=== PATIENT | female | born 1935 | race Caucasian/White ===

== ENCOUNTER 2017-11-23 09:11 | Inpatient (IN) | payer OTHER, MEDICARE ==
[~2017-11-23] VITALS: Ht 142.2 cm; Wt 80.8 kg
[2017-11-23] VITALS (8 sets, daily range): BP systolic 136–170; BP diastolic 80–127
[~2017-11-23 09:11] MED LIST: CALCIUM + D TA1 EACH PO; FLEXERIL10 MG PO; LASIX20 MG PO; LIDODERM 5% P1 PATCH TD; LOPRESSOR100 M1 PO; LORCET 5-325 M1 EACH PO; METOPROLOL SUC100 MG PO; MOTRIN600 MG PO; NAPROXEN500 MG PO; NORCO 5/3251 TABLET PO; POTASSIUM CHLO20 ME2 PO; PRADAXA150 MG PO; PROCARDIA XL60 MG PO; SUPER CALCIUM600 MG PO; ULTRAM50 MG PO; VALIUM2 MG PO; VERAPAMIL ER300 MG PO; VERAPAMIL HCL240 MG PO; XANAX0.25 MG PO; XARELTO10 MG PO
[2017-11-23 10:37] LABS: HEMATOCRIT 44.6 % (36.0-46.0); HEMOGLOBIN 14.5 G/DL (11.9-15.5); MCH 30.9 PG (29.0-34.0); MCHC 32.5 G/DL (30.0-36.0); MCV 94.9 FL (83-99); PLATELET COUNT 226 K/uL (156-360); RBC DIS.WIDTH-CV 14.4 % (11.8-14.6); RBC DIS.WIDTH-SD 50.3 % (39-53); WHITE BLOOD COUNT 8.4 K/uL (4.1-10.2)
[2017-11-23 10:47] LABS: INTER. NORMALIZED RATIO 3.2
[2017-11-23 10:50] LABS: PTT 34.1 SEC (25-37)
[2017-11-23 10:51] LABS: CHLORIDE 105 mEq/L (99-109); SODIUM 142 mEq/L (136-147)
[2017-11-23 10:52] LABS: GLUCOSE 136 mg/dL (70-99)
[2017-11-23 10:56] LABS: CREATININE 1.4 mg/dL (0.6-1.3); GFR ESTIMATE (CALCULATED) 38 mL/min/
[2017-11-23] MEDS ORDERED: VITAMIN D2000 UNI1 PO (10:56)
[2017-11-23 10:57] LABS: UREA NITROGEN (BUN) 28 mg/dL (9-23)
[2017-11-23] MEDS ORDERED: VIBRAMYCIN100 MG PO (10:57)
[2017-11-23] MEDS ORDERED: COUMADIN2 MG PO (10:57)
[2017-11-23 11:26] LABS: CREATINE KINASE 50 IU/L (1-294)
[2017-11-23 21:00] LABS: INTER. NORMALIZED RATIO 2.8
[2017-11-24] VITALS (7 sets, daily range): BP systolic 129–158; BP diastolic 54–76
[2017-11-24 02:56] LABS: INTER. NORMALIZED RATIO 2.8
[2017-11-24 03:00] LABS: ALBUMIN 2.9 g/dL (3.2-4.8); CHLORIDE 107 mEq/L (99-109); POTASSIUM 4.3 mEq/L (3.7-5.4); SODIUM 142 mEq/L (136-147)
[2017-11-24 03:02] LABS: HEMATOCRIT 37.1 % (36.0-46.0); HEMOGLOBIN 12.4 G/DL (11.9-15.5); MCH 31.7 PG (29.0-34.0); MCHC 33.4 G/DL (30.0-36.0); MCV 94.9 FL (83-99); NRBC (%) 0.2 /100 WBC (0-0); PLATELET COUNT 178 K/uL (156-360); RBC DIS.WIDTH-CV 14.6 % (11.8-14.6); RBC DIS.WIDTH-SD 49.9 % (39-53); RED BLOOD COUNT 3.91 M/uL (3.80-5.20); WHITE BLOOD COUNT 10.2 K/uL (4.1-10.2)
[2017-11-24 03:03] LABS: TOTAL PROTEIN 5.4 g/dL (6.4-8.3)
[2017-11-24 03:04] LABS: TOTAL BILIRUBIN 2.4 mg/dL (0.0-1.0)
[2017-11-24 03:06] LABS: ALKALINE PHOSPHATASE 76 IU/L (3-129); GFR ESTIMATE (CALCULATED) 57 mL/min/
[2017-11-24 03:07] LABS: UREA NITROGEN (BUN) 25 mg/dL (9-23)
[2017-11-24 03:08] LABS: AST (GOT) 17 IU/L (2-34)
[2017-11-24 03:09] LABS: ALT (GPT) 15 IU/L (3-49)
[2017-11-24 03:13] LABS: GLUCOSE 99 mg/dL (70-99)
[2017-11-24 03:45] LABS: APPEARANCE SL.HAZY ((CLEAR)); BILIRUBIN NEGATIVE; BLOOD LARGE; COLOR YELLOW ((YELLOW)); GLUCOSE (STRIP) NEGATIVE; KETONES NEGATIVE; LEUKOCYTES NEGATIVE; NITRITE NEGATIVE; PROTEIN (STRIP) 100; SPECIFIC GRAVITY 1.025 (1.000-1.030); UROBILINOGEN 0.2 MG/DL (0.2-1.0)
[2017-11-24 04:44] LABS: BACTERIA RARE /HPF; EPITHELIAL CELLS RARE /HPF; HYALINE CASTS 0-5 /LPF; MUCUS TRACE /LPF; RED BLOOD CELLS TNTC /HPF (0-5); UCUL ADDED? YES
[2017-11-24 07:16] LABS: CHLORIDE 107 MEQ/L (99-109); CREATININE 1.1 MG/DL (0.6-1.3); GFR ESTIMATE (CALCULATED) 51 mL/min/; GLUCOSE 97 mg/dL (70-99); POTASSIUM 4.5 MEQ/L (3.7-5.4); SODIUM 141 MEQ/L (136-147); UREA NITROGEN (BUN) 24 mg/dL (9-23)
[2017-11-24 15:03] LABS: INTER. NORMALIZED RATIO 2.5
[2017-11-24 15:06] LABS: PTT 32.2 SEC (25-37)
[2017-11-25 04:16] VITALS: BP 138/76
[2017-11-25 08:04] VITALS: BP 133/77
[2017-11-25 09:55] LABS: INTER. NORMALIZED RATIO 1.3
[2017-11-25 11:48] VITALS: BP 146/73
[2017-11-25 16:30] VITALS: BP 157/72
[2017-11-25 20:30] VITALS: BP 166/80
[2017-11-25 23:44] VITALS: BP 144/66
[2017-11-26 04:06] VITALS: BP 147/65
[2017-11-26 06:08] LABS: BASOPHIL (%) 0.2 % (0-1); EOSINOPHIL (%) 0.5 % (0-5); EOSINOPHIL COUNT 0.1 K/uL (0-0.3); HEMATOCRIT 33.5 % (36.0-46.0); HEMOGLOBIN 10.9 G/DL (11.9-15.5); IMMATURE GRANULOCYTE (%) 0.6 % (0.0-0.7); LYMPHOCYTE (%) 9.2 % (15-42); LYMPHOCYTE COUNT 1.2 K/uL (1.0-2.8); MCH 31.3 PG (29.0-34.0); MCHC 32.5 G/DL (30.0-36.0); MCV 96.3 FL (83-99); MONOCYTE (%) 12.6 % (3-12); MONOCYTE COUNT 1.6 K/uL (0-0.8); NEUTROPHIL (%) 76.9 % (45-76); NEUTROPHIL COUNT 9.8 K/uL (1.8-6.4); NRBC (%) 0.8 /100 WBC (0-0); PLATELET COUNT 184 K/uL (156-360); RBC DIS.WIDTH-CV 15.1 % (11.8-14.6); RBC DIS.WIDTH-SD 51.6 % (39-53); RED BLOOD COUNT 3.48 M/uL (3.80-5.20); WHITE BLOOD COUNT 12.7 K/uL (4.1-10.2)
[2017-11-26 06:21] LABS: CHLORIDE 109 MEQ/L (99-109); GFR ESTIMATE (CALCULATED) 57 mL/min/; GLUCOSE 110 mg/dL (70-99); POTASSIUM 4.3 MEQ/L (3.7-5.4); SODIUM 140 MEQ/L (136-147); UREA NITROGEN (BUN) 26 mg/dL (9-23)
[2017-11-26 07:55] VITALS: BP 145/75
[2017-11-26 14:51] LABS: INTER. NORMALIZED RATIO 1.5
[2017-11-26 16:30] VITALS: BP 145/72
[2017-11-26 20:21] VITALS: BP 166/74
[2017-11-26 23:29] VITALS: BP 117/56
[2017-11-27 04:28] VITALS: BP 119/56
[2017-11-27 06:07] LABS: BASOPHIL (%) 0.1 % (0-1); EOSINOPHIL (%) 1.9 % (0-5); EOSINOPHIL COUNT 0.2 K/uL (0-0.3); HEMATOCRIT 31.6 % (36.0-46.0); HEMOGLOBIN 10.1 G/DL (11.9-15.5); IMMATURE GRANULOCYTE (%) 0.5 % (0.0-0.7); LYMPHOCYTE (%) 8.7 % (15-42); LYMPHOCYTE COUNT 0.9 K/uL (1.0-2.8); MCV 96.9 FL (83-99); MONOCYTE (%) 13.6 % (3-12); MONOCYTE COUNT 1.5 K/uL (0-0.8); NEUTROPHIL (%) 75.2 % (45-76); NEUTROPHIL COUNT 8.1 K/uL (1.8-6.4); NRBC (%) 1.2 /100 WBC (0-0); PLATELET COUNT 182 K/uL (156-360); RBC DIS.WIDTH-CV 15.3 % (11.8-14.6); RBC DIS.WIDTH-SD 51.8 % (39-53); RED BLOOD COUNT 3.26 M/uL (3.80-5.20); WHITE BLOOD COUNT 10.8 K/uL (4.1-10.2)
[2017-11-27 06:25] LABS: CHLORIDE 111 MEQ/L (99-109); CREATININE 0.8 MG/DL (0.6-1.3); GFR ESTIMATE (CALCULATED) > 59 mL/min/; GLUCOSE 101 mg/dL (70-99); POTASSIUM 4.2 MEQ/L (3.7-5.4); SODIUM 142 MEQ/L (136-147); UREA NITROGEN (BUN) 21 mg/dL (9-23)
[2017-11-27 06:38] LABS: INTER. NORMALIZED RATIO 2.8
[2017-11-27 07:58] VITALS: BP 138/69
[2017-11-27 11:49] VITALS: BP 154/74
[2017-11-27 14:51] LABS: INTER. NORMALIZED RATIO 3.7
[2017-11-27 16:15] VITALS: BP 157/68
[2017-11-27 20:00] VITALS: BP 139/73
[2017-11-27 23:57] VITALS: BP 143/75
[2017-11-28 04:00] VITALS: BP 155/80
[2017-11-28 05:52] LABS: BASOPHIL (%) 0.1 % (0-1); EOSINOPHIL (%) 1.8 % (0-5); EOSINOPHIL COUNT 0.2 K/uL (0-0.3); HEMATOCRIT 30.3 % (36.0-46.0); HEMOGLOBIN 9.6 G/DL (11.9-15.5); IMMATURE GRANULOCYTE (%) 0.5 % (0.0-0.7); LYMPHOCYTE (%) 10.3 % (15-42); LYMPHOCYTE COUNT 1.2 K/uL (1.0-2.8); MCHC 31.7 G/DL (30.0-36.0); MCV 97.7 FL (83-99); MONOCYTE (%) 13.9 % (3-12); MONOCYTE COUNT 1.7 K/uL (0-0.8); NEUTROPHIL (%) 73.4 % (45-76); NEUTROPHIL COUNT 8.7 K/uL (1.8-6.4); NRBC (%) 0.4 /100 WBC (0-0); PLATELET COUNT 171 K/uL (156-360); RBC DIS.WIDTH-SD 53.6 % (39-53); WHITE BLOOD COUNT 11.9 K/uL (4.1-10.2)
[2017-11-28 06:23] LABS: CHLORIDE 109 MEQ/L (99-109); CREATININE 0.8 MG/DL (0.6-1.3); GFR ESTIMATE (CALCULATED) > 59 mL/min/; GLUCOSE 95 mg/dL (70-99); POTASSIUM 4.6 MEQ/L (3.7-5.4); SODIUM 140 MEQ/L (136-147); UREA NITROGEN (BUN) 22 mg/dL (9-23)
[2017-11-28 07:23] VITALS: BP 191/80
[2017-11-28 08:25] LABS: INTER. NORMALIZED RATIO 3.5
[2017-11-28 11:45] VITALS: BP 145/75; BP 515/75
[2017-11-28 15:24] LABS: INTER. NORMALIZED RATIO 3.3
[2017-11-28 15:25] VITALS: BP 134/74
[2017-11-28 20:39] VITALS: BP 138/67
[2017-11-29] VITALS (7 sets, daily range): BP systolic 143–177; BP diastolic 69–84
[2017-11-29 06:04] LABS: BASOPHIL (%) 0.1 % (0-1); EOSINOPHIL (%) 1.4 % (0-5); EOSINOPHIL COUNT 0.2 K/uL (0-0.3); HEMATOCRIT 29.1 % (36.0-46.0); HEMOGLOBIN 9.4 G/DL (11.9-15.5); IMMATURE GRANULOCYTE (%) 0.7 % (0.0-0.7); LYMPHOCYTE (%) 10.6 % (15-42); LYMPHOCYTE COUNT 1.5 K/uL (1.0-2.8); MCH 31.8 PG (29.0-34.0); MCHC 32.3 G/DL (30.0-36.0); MCV 98.3 FL (83-99); MONOCYTE COUNT 1.7 K/uL (0-0.8); NEUTROPHIL (%) 75.2 % (45-76); NEUTROPHIL COUNT 10.6 K/uL (1.8-6.4); NRBC (%) 0.2 /100 WBC (0-0); PLATELET COUNT 189 K/uL (156-360); RBC DIS.WIDTH-CV 15.9 % (11.8-14.6); RBC DIS.WIDTH-SD 54.9 % (39-53); RED BLOOD COUNT 2.96 M/uL (3.80-5.20)
[2017-11-29 06:11] LABS: CHLORIDE 109 MEQ/L (99-109); CREATININE 0.9 MG/DL (0.6-1.3); GFR ESTIMATE (CALCULATED) > 59 mL/min/; GLUCOSE 89 mg/dL (70-99); POTASSIUM 4.6 MEQ/L (3.7-5.4); SODIUM 140 MEQ/L (136-147); UREA NITROGEN (BUN) 25 mg/dL (9-23)
[2017-11-29 06:44] LABS: INTER. NORMALIZED RATIO 2.9
[2017-11-29] MEDS ORDERED: OXYCODONE HCL5 MG PO (12:00)
[2017-11-29] MEDS ORDERED: TAMSULOSIN HCL0.4 MG PO (12:00)
[2017-11-29] MEDS ORDERED: SENNA PLUS TAB1 EACH PO (12:00)
[2017-11-29] MEDS ORDERED: LISINOPRIL20 MG PO (12:00)
[2017-11-30 04:27] VITALS: BP 170/83
[2017-11-30 05:49] LABS: INTER. NORMALIZED RATIO 2.8
[2017-11-30 07:15] VITALS: BP 161/80
[2017-11-30 11:31] VITALS: BP 175/80
== END 2017-11-30 15:56 | DRG 481 ==
LOC: EME → EDBD 09:11 → 3EAST 10:51 → EDOF 10:51 → ENRESERV 10:52 → EDOF 10:59 → ENRESERV 15:13 → 3EAST 16:35
PROVIDERS: Hospitalist; Internal Medicine; Nurse Practitioner Family; Orthopaedic Surgery; Physician Assistant
PROC: 0QS704Z Reposition Left Upper Femur with Internal Fixation Device, Open Approach (ICD-10-PCS; principal; 2017-11-23)
DX: S72.142A Displaced intertrochanteric fracture of left femur, initial encounter for closed fracture (principal); N17.9 Acute kidney failure, unspecified; I08.0 Rheumatic disorders of both mitral and aortic valves; I10 Essential (primary) hypertension; S39.012A Strain of muscle, fascia and tendon of lower back, initial encounter; W18.30XA Fall on same level, unspecified, initial encounter; I71.2 Thoracic aortic aneurysm, without rupture; I48.1 Persistent atrial fibrillation; I27.20 Pulmonary hypertension, unspecified; I83.009 Varicose veins of unspecified lower extremity with ulcer of unspecified site; I11.9 Hypertensive heart disease without heart failure; L97.929 Non-pressure chronic ulcer of unspecified part of left lower leg with unspecified severity; R79.1 Abnormal coagulation profile; I89.0 Lymphedema, not elsewhere classified; C44.90 Unspecified malignant neoplasm of skin, unspecified; I42.9 Cardiomyopathy, unspecified; M81.0 Age-related osteoporosis without current pathological fracture; R33.8 Other retention of urine; R31.9 Hematuria, unspecified; I87.8 Other specified disorders of veins; E66.9 Obesity, unspecified; L30.9 Dermatitis, unspecified; Z68.39 Body mass index [BMI] 39.0-39.9, adult; Z66 Do not resuscitate; Z90.710 Acquired absence of both cervix and uterus; Z79.01 Long term (current) use of anticoagulants; L89.95 Pressure ulcer of unspecified site, unstageable; L89.890 Pressure ulcer of other site, unstageable; T36.4X5A Adverse effect of tetracyclines, initial encounter; Y92.009 Unspecified place in unspecified non-institutional (private) residence as the place of occurrence of the external cause; Z79.899 Other long term (current) drug therapy
CPT/HCPCS: 71045; 73502; 73522; 76000; 80048; 80048 91; 80053; 81003; 82248; 82550; 82550 91; 85014; 85018; 85025; 85027; 85610; 85730; 86850; 86900; 86901; 87040; 87086; 93005; 97530 GO; 97530 GP; 99281; 99285; A6212; A6260; C1713; J0131; J0360; J0690; J0692; J1160; J1885; J2405; J3430; J7030; J7050; P9017